=== PATIENT | female | born 1940 | race Caucasian/White ===

== ENCOUNTER → 2017-02-25 | Outpatient (CLI) | payer MEDICARE, OTHER ==
[~2017-02-25] MED LIST: ACTOS 15MG TABL15 MG; AMLODIPINE BES10 MG; FLUOXETINE20 M1; MECLIZINE 25MG25 MG; METFORMIN 500M500 M1; PRAVACHOL 40MG40 MG
--- NOTE | 2017-02-26 06:48 | RADIOLOGY REPORT PS360 ---
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 Narrowing, sclerosis, marginal osteophytes seen here are similar to previous 2016 exam However in the interval the radial styloid has a more irregular appearance. Less well-defined. There is a some mild cortical irregularity along the distal aspect of radius and radial styloid. There is a questionable hairline nondisplaced fracture in this area on 2016. This may have accounted for the interval change. Also appear to be some progressive arthritic changes and narrowing at the radial scaphoid joint. Lateral film suggest slight additional dorsal tilt of the lunate but still towards the spectrum normal.. May be accentuated by today's position. The anterior fat plane at the wrist appears normal.. Slight more Foreshortened appearance scaphoid of the frontal projection is I suspect is from positioning as scaphoid appears to be stable and similar on the oblique view. IMPRESSION: 1. Subtle irregularities are seen at the radial styloid and distal radius have developed since 2016 study-I favor from subtle old fracture and injury. With additional narrowing & arthritic changes at radius-scaphoid joint in the interval 2. no definitive acute fracture, but. If pain persist consider follow-up 3. Prominent arthritic changes at first carpal metacarpal joint
== END ==
LOC: RAD 12:19
DX: M25.532 Pain in left wrist (principal)